=== PATIENT | female | born 1960 | race Caucasian/White ===

== ENCOUNTER 2016-12-11 15:10 | Emergency (ER) | payer OTHER ==
[~2016-12-11] VITALS: Ht 175.3 cm; Wt 63.5 kg
[2016-12-11 15:27] VITALS: BP 144/92
[2016-12-11] MEDS ORDERED: GABAPENTIN300 M2 PO (16:02)
[2016-12-11] MEDS ORDERED: HYDROCODON-ACE1 EAC1 PO (16:02)
[2016-12-11] MEDS ORDERED: ADVIL200 M1 PO (16:03)
[2016-12-11] MEDS ORDERED: ACETAMINOPHEN500 M4 PO (16:03)
--- NOTE | 2016-12-11 16:20 | ED GENERAL ADULT ---
History of Present Illness General Chief Complaint: Neck/Upper Back Pain/Injury Stated Complaint: NECK PAIN Source: patient Exam Limitations: no limitations Vital Signs & Intake/Output Vital Signs & Intake/Output Vital Signs Date Time Temp Pulse Resp B/P B/P Pulse O2 O2 Flow FiO2 Mean Ox Delivery Rate 12/11 1607 Room Air 12/11 1527 97.1 92 18 144/92 96 Room Air ED Intake and Output 12/12 0000 12/11 1200 Intake Total Output Total Balance Patient 140 lb Weight Allergies Coded Allergies: No Known Allergies (05/28/16) Reconcile Medications Acetaminophen 500 MG TABLET 2 TAB PO TID PAIN (Reported) Gabapentin 300 MG CAPSULE 1 CAP PO TID NERVE PAIN (Reported) Hydrocodone/Acetaminophen (Hydrocodon-Acetaminophn 10-325) 10 MG-325 MG TABLET 1 TAB PO TID PRN PAIN (Reported) Ibuprofen (Advil) 200 MG CAPSULE 600 MG PO TID PAIN (Reported) Lidocaine (Lidoderm) 5 % ADH..PATCH 1 PAT TOP DAILY pain may wear up to 12 hours Naproxen (Naprosyn) 500 MG TABLET 1 TAB PO BID PRN pain Oxycodone HCl/Acetaminophen (Percocet 5-325 MG Tablet) 5 MG-325 MG TABLET 1 TAB PO BID PRN pain Triage Note: PT STATES THAT SHE HAS CHRONIC BACK AND NECK PAIN AND SHE JUST RETURNED FROM [place] AND HAS BEEN HAVING A LOT OF PAIN. PT STTAES THAT SHE JUST FINALLY GOT OFF ALL OPIODS AT THE END OF AUGUST AND THAT SHE HAS APPOINTMENT COMING UP FOR CORTISONE SHOTS Triage Nurses Notes Reviewed? yes HPI: 56-year-old female with a history of rheumatoid arthritis, chronic neck and back pain, status post lumbar fusion approximately 10 years ago, status post cervical pinning approximately 2 years ago presenting with acute on chronic neck and back pain 1 week. Reports bilateral paraspinal neck pain and right lower back pain, no numbness or paresthesias to upper or lower extremities. Denies recent trauma. Was previously managed on morphine and oxycodone for pain relief, electively tapered and discontinued her narcotic pain medications as she did not want to take them anymore. He has tried Tylenol and ibuprofen for pain over the past week without improvement. Has an appointment scheduled to to be evaluated for epidural steroid injections, which she has had good improvement of pain relief in the past. Denies fevers, IV drug use, saddle paresthesias, urinary/bowel incontinence/retention. (CARLOS WOLF PA-C) Past History Travel History Traveled to [place] past 21 day No Medical History Any Pertinent Medical History? see below for history Neurological: NONE EENT: NONE Cardiovascular: NONE Respiratory: NONE Gastrointestinal: NONE Hepatic: NONE Renal: NONE Musculoskeletal: rheumatoid arthritis Psychiatric: NONE Endocrine: NONE Blood Disorders: NONE Cancer(s): NONE Surgical History Surgical History: non-contributory Psychosocial History What is your primary language Icelandic Tobacco Use: Never used ETOH Use: denies use Illicit Drug Use: denies illicit drug use Family History Hx Contributory? No (CARLOS WOLF PA-C) Review of Systems Review of Systems Constitutional: Reports: no symptoms. Respiratory: Reports: no symptoms. Cardiovascular: Reports: no symptoms. GI: Reports: no symptoms. Genitourinary: Reports: no symptoms. Musculoskeletal: Reports: back pain, neck pain. Skin: Reports: no symptoms. Neurological/Psychological: Reports: no symptoms. (CARLOS WOLF PA-C) Physical Exam Physical Exam General Appearance: well developed/nourished, no apparent distress, comfortable Head: atraumatic Neck: normal inspection, full range of motion, no midline tenderness, +TTP over left and right paraspinal muscles Respiratory: normal breath sounds, lungs clear Cardiovascular: regular rate/rhythm Back: normal inspection, normal range of motion, no vertebral tenderness, +TTP over right low back muscles, neg straight leg raise Neurologic/Psych: no motor/sensory deficits, awake, alert, oriented x 3, normal gait, tube winder II-XII nml as tested Skin: intact, normal color, warm/dry Core Measures ACS in differential dx? No CVA/TIA Diagnosis: No Severe Sepsis Present: No Septic Shock Present: No (CARLOS WOLF PA-C) Progress Differential Diagnoses I considered the following diagnoses in my evaluation of the patient: [Muscle strain versus vertebral injury versus disc herniation versus cauda equina versus epidural abscess] Plan of Care: Current Medications Sig/Caren Start time Last Medication Dose Stop Time Status Admin Lidocaine 1 PAT ONCE ONE 12/11 1729 UNVr (Lidoderm) 12/11 1730 Patient given Rx for Lidoderm patches and naproxen. Also given Percocet to help for breakthrough pain until she can be evaluated on December 22 for her epidural steroid injections. (CARLOS WOLF PA-C) Initial ED EKG: none (CARLOS WOLF PA-C) Departure Departure Disposition: HOME OR SELF CARE Condition: Stable Clinical Impression Primary Impression: Neck pain Secondary Impressions: Back pain Referrals: UNKNOWN (PCP/Family) Additional Instructions: Apply 1 Lidoderm patch to sore areas once daily as needed for pain. Use naproxen 500 mg twice daily as needed for pain. Take with a meal. Use one tablet Percocet every 6 hours as needed for breakthrough pain after you have first tried ibuprofen. Follow up as scheduled on December 23 for evaluation of epidural steroid treatments. Her turn to the ED for any new or worsening symptoms Departure Forms: Customer Survey General Discharge Information Prescriptions: Current Visit Scripts Lidocaine (Lidoderm) 1 PAT TOP DAILY #30 PAT may wear up to 12 hours Naproxen (Naprosyn) 1 TAB PO BID PRN pain #60 TAB Oxycodone HCl/Acetaminophen (Percocet 5-325 MG Tablet) 1 TAB PO BID PRN pain #12 TAB (CARLOS WOLF PA-C) PA/POST PARTUM NURSE Co-Sign Statement Statement: ED Attending supervision documentation- [] I saw and evaluated the patient. I have also reviewed all the pertinent lab results and diagnostic results. I agree with the findings and the plan of care as documented in the PA's/POST PARTUM NURSE's documentation. [X] I have reviewed the ED Record and agree with the PA's/POST PARTUM NURSE's documentation. [] Additions or exceptions (if any) to the PAs/POST PARTUM NURSE's note and plan are summarized below: [] (MARIAH OATES DO) Critical Care Note Critical Care Note Critical Care Time: non-applicable (CARLOS WOLF PA-C)
[2016-12-11] MEDS ORDERED: LIDODERM1 EACH TOP (17:22)
[2016-12-11] MEDS ORDERED: PERCOCET 5-3251 EACH PO (17:22)
[2016-12-11] MEDS ORDERED: NAPROSYN500 M1 PO (17:22)
== END 2016-12-11 17:34 ==
LOC: ERH 15:10
DX: M54.2 Cervicalgia (principal); M54.5 Low back pain